=== PATIENT | female | born 1975 | race Two or more races ===

== ENCOUNTER 2022-08-02 19:24 | Inpatient (IN) | payer SELFPAY ==
[2022-08-02 19:36] VITALS: BMI 28.6
[2022-08-02 20:48] LABS: BASO % 0.7 % (0-2.0); EOS % 4.2 % (0-4.5); HEMATOCRIT 34.2 % (32.4-45.2); HEMOGLOBIN 11.5 GM/dL (10.7-15.3); MCH 28.7 pg (25.7-33.7); MCHC 33.5 g/dl (32.0-36.0); MEAN CELL VOLUME 85.8 fl (80-96); MEAN PLT VOLUME 9.4 fl (7.5-11.1); MONO % 7.3 % (3.8-10.2); NEUT % 53.8 % (42.8-82.8); PLATELET COUNT 305 10^3/uL (134-434); RBC 3.99 M/mm3 (3.60-5.2); RDW 14.8 % (11.6-15.6); WHITE BLOOD COUNT 7.4 K/mm3 (4.0-10.0)
[2022-08-02 20:55] LABS: INR 1.03 (0.83-1.09); PROTHROMBIN TIME (PATIENT) 11.9 SEC (9.7-13.0)
[2022-08-02 20:57] LABS: ACTIVATED PTT 34.1 SECONDS (25.2-36.5)
[2022-08-02 21:01] LABS: CALCIUM 8.5 mg/dL (8.5-10.1)
[2022-08-02 21:03] LABS: ALBUMIN 3.6 g/dl (3.4-5.0)
[2022-08-02 21:06] LABS: CREATININE 0.7 mg/dL (0.55-1.3); TOT PROT 7.2 g/dl (6.4-8.2)
[2022-08-02 21:07] LABS: BILIRUBIN,TOTAL 0.2 mg/dL (0.2-1)
[2022-08-02] MEDS ORDERED: ASPIRIN 325 MG TABLET PO ONE (22:15)
[2022-08-02] MEDS ORDERED: MECLIZINE HCL 25 MG TABLET (FP) PO ONE (22:16)
[2022-08-02] MEDS ORDERED: SODIUM CHLORIDE 1,000 ML IV STA (22:17)
[2022-08-02 22:19] LABS: PH,URINE 6.5 (5.0-8.0); URINE APPEARANCE CLEAR; URINE BILIRUBIN NEGATIVE (NEGATIVE); URINE COLOR YELLOW; URINE GLUCOSE (UA) NEGATIVE (NEGATIVE); URINE KETONE NEGATIVE (NEGATIVE); URINE LEUK ESTERASE NEGATIVE (NEGATIVE); URINE NITRITE NEGATIVE (NEGATIVE); URINE PROTEIN NEGATIVE (NEGATIVE); URINE UROBILINOGEN 0.2 mg/dL (0.2-1.0)
[2022-08-02] MEDS ORDERED: ATORVASTATIN CA 80 MG TABLET (FP) PO ONE (22:20)
[2022-08-02] MEDS ORDERED: ASPIRIN 325 MG TABLET ONE (22:41)
[2022-08-02] MEDS ORDERED: ATORVASTATIN CA 80 MG TABLET (FP) ONE (22:41)
[2022-08-02] MEDS ORDERED: SODIUM CHLORIDE 1,000 ML IV SCH (23:45)
[2022-08-02] MEDS ORDERED: MECLIZINE HCL 25 MG TABLET (FP) PO PRN (23:47)
[2022-08-03 01:54] LABS: COCAINE, UR NEGATIVE (NEGATIVE); METHADONE, UR NEGATIVE (NEGATIVE); OPIATES, URI NEGATIVE (NEGATIVE); PHENCYCLIDINE,URINE NEGATIVE (NEGATIVE); URINE BENZODIAZEPINES NEGATIVE (NEGATIVE)
[2022-08-03 02:18] LABS: URINE AMPHETAMINES NEGATIVE (NEGATIVE); URINE BARBITURATES NEGATIVE (NEGATIVE)
[2022-08-03 08:03] LABS: BASO % 1.2 % (0-2.0); EOS % 6.9 % (0-4.5); HEMATOCRIT 32.6 % (32.4-45.2); HEMOGLOBIN 10.9 GM/dL (10.7-15.3); LYMPH % 41.4 % (8-40); MCH 28.9 pg (25.7-33.7); MCHC 33.5 g/dl (32.0-36.0); MEAN CELL VOLUME 86.3 fl (80-96); MEAN PLT VOLUME 9.1 fl (7.5-11.1); MONO % 7.9 % (3.8-10.2); NEUT % 42.6 % (42.8-82.8); PLATELET COUNT 261 10^3/uL (134-434); RBC 3.78 M/mm3 (3.60-5.2); WHITE BLOOD COUNT 5.6 K/mm3 (4.0-10.0)
[2022-08-03 09:17] LABS: ALBUMIN 3.1 g/dl (3.4-5.0); BILIRUBIN,TOTAL 0.4 mg/dL (0.2-1); CREATININE 0.6 mg/dL (0.55-1.3); MAGNESIUM 1.9 mg/dL (1.8-2.4); PHOSPHOROUS 3.8 mg/dL (2.5-4.9); TOT PROT 6.2 g/dl (6.4-8.2)
[2022-08-03] MEDS ORDERED: FUROSEMIDE 20 MG TABLET (FP) ONE (09:20)
[2022-08-03] MEDS ORDERED: ENOXAPARIN NA (PORCINE) 40 MG/0.4 ML DISP.SYRIN SQ ONE (09:20)
[2022-08-03] MEDS ORDERED: ENOXAPARIN NA (PORCINE) 40 MG/0.4 ML DISP.SYRIN SQ SCH (10:00)
[2022-08-03] MEDS ORDERED: KETOTIFEN FUMARATE OP SCH (10:00)
[2022-08-03] MEDS ORDERED: FUROSEMIDE 20 MG TABLET (FP) PO SCH (10:00)
[2022-08-03 14:27] VITALS: BP 102/54; TEMP 97.4
[2022-08-03 14:28] VITALS: PULSE 57; RESP 16
[2022-08-03] MEDS ORDERED: MAGNESIUM 1GM/D5W 100ML - 100 ML IVPB IVPB ONE (14:32)
[2022-08-03] MEDS ORDERED: CYCLOBENZAPRINE HCL 5 MG TABLET PO SCH (14:45)
[2022-08-03] MEDS ORDERED: CYCLOBENZAPRINE HCL 5 MG TABLET ONE (14:47)
[2022-08-03] MEDS ORDERED: MAGNESIUM 1GM/D5W - 1 GM/100 ML IVPB IVPB ONE (14:48)
[2022-08-03] MEDS ORDERED: ATORVASTATIN CA 80 MG TABLET (FP) PO SCH (22:00)
== END 2022-08-03 16:00 | disposition home or self-care (01) | DRG 111 ==
LOC: JER 19:24 → JERBED 20:38
PROVIDERS: ADMIT Internal Medicine; ATTEND Internal Medicine
DX: R42 Dizziness and giddiness (principal); R73.03 Prediabetes; R00.1 Bradycardia, unspecified; Z86.16 Personal history of COVID-19; E78.5 Hyperlipidemia, unspecified; R51.9 Headache, unspecified; H53.8 Other visual disturbances; H91.91 Unspecified hearing loss, right ear
CPT/HCPCS: 36415; 70450-TC; 71045-TC-FY; 80053; 80061; 80307; 81003; 82550; 82553; 82962; 83036; 83735; 84100; 84443; 84484; 85025; 85610; 85730; 86850; 86900; 86901; 93005; 93010; 99285-25; C9803-CS; U0003; U0005